=== PATIENT | female | born 1960 | race Caucasian/White ===

== ENCOUNTER 2018-02-01 17:37 | Emergency (ER) | payer OTHER ==
[~2018-02-01] VITALS: Ht 162.6 cm; Wt 63.1 kg
[~2018-02-01 17:37] MED LIST: LOPRESSOR25 MG PO; PLAVIX75 MG PO; PRILOSEC40 MG PO; PRINIVIL20 MG PO; PROZAC20 MG PO; ROBAXIN500 MG PO; ULTRAM50 MG PO; ZOCOR40 MG PO; ZOCOR80 M1 PO
[2018-02-01 18:03] LABS: BASOPHIL COUNT 0.1 K/uL (0-0.1); EOSINOPHIL (%) 3.2 % (0-5); EOSINOPHIL COUNT 0.2 K/uL (0-0.3); HEMATOCRIT 42.3 % (36.0-46.0); HEMOGLOBIN 14.7 G/DL (11.9-15.5); IMMATURE GRANULOCYTE (%) 0.3 % (0.0-0.7); LYMPHOCYTE (%) 29.9 % (15-42); LYMPHOCYTE COUNT 1.8 K/uL (1.0-2.8); MCH 33.9 PG (29.0-34.0); MCHC 34.8 G/DL (30.0-36.0); MCV 97.7 FL (83-99); MONOCYTE (%) 9.6 % (3-12); MONOCYTE COUNT 0.6 K/uL (0-0.8); NEUTROPHIL COUNT 3.3 K/uL (1.8-6.4); PLATELET COUNT 245 K/uL (156-360); RBC DIS.WIDTH-CV 12.3 % (11.8-14.6); RBC DIS.WIDTH-SD 44.2 % (39-53); RED BLOOD COUNT 4.33 M/uL (3.80-5.20)
[2018-02-01 18:07] LABS: INTER. NORMALIZED RATIO 0.9
[2018-02-01 18:09] LABS: PTT 29.5 SEC (25-37)
[2018-02-01 18:10] LABS: AMYLASE 34 IU/L (1-118); CHLORIDE 108 mEq/L (99-109); POTASSIUM 4.6 mEq/L (3.7-5.4); SODIUM 140 mEq/L (136-147)
[2018-02-01 18:12] LABS: GLUCOSE 109 mg/dL (70-99)
[2018-02-01 18:15] LABS: SERUM ETHYL ALCOHOL < 10 mg/dL
[2018-02-01 18:16] LABS: CREATININE 0.8 mg/dL (0.6-1.3); GFR ESTIMATE (CALCULATED) > 59 mL/min/; UREA NITROGEN (BUN) 14 mg/dL (9-23)
[2018-02-01 18:19] LABS: LIPASE 25 U/L (1.0-51.0)
[2018-02-01 18:21] LABS: TROP-I INTERPRETATION NEGATIVE; TROPONIN-I < 0.01 ng/mL (0.0-0.30)
[2018-02-01 20:03] LABS: APPEARANCE SL.HAZY ((CLEAR)); BILIRUBIN NEGATIVE; BLOOD MODERATE; COLOR YELLOW ((YELLOW)); GLUCOSE (STRIP) NEGATIVE; KETONES NEGATIVE; LEUKOCYTES TRACE; NITRITE NEGATIVE; PROTEIN (STRIP) NEGATIVE; SPECIFIC GRAVITY 1.004 (1.000-1.030); UROBILINOGEN 0.2 MG/DL (0.2-1.0)
[2018-02-01 20:04] VITALS: BP 154/67
[2018-02-01 20:11] LABS: AMPHETAMINE NEGATIVE (500 ng/mL); BARBITURATES NEGATIVE (200 ng/mL); BENZODIAZEPINES NEGATIVE (150 ng/mL); BUPRENORPHINE NEGATIVE (10 ng/mL); COCAINE NEGATIVE (150 ng/mL); METHADONE NEGATIVE (200 ng/mL); METHAMPHETAMINE NEGATIVE (500 ng/mL); OPIATES (MORPHINE) NEGATIVE (100 ng/mL); OXYCODONE NEGATIVE (100 ng/mL); PHENCYCLIDINE NEGATIVE (25 ng/mL); PROPOXYPHENE NEGATIVE (300 ng/mL); THC CANNABINOIDS NEGATIVE (50 ng/mL); TRICYCLIC ANTIDEPRESSANTS NEGATIVE (300 ng/mL)
[2018-02-01 20:25] LABS: WHITE BLOOD CELLS 0-5 /HPF (0-5)
[2018-02-01 20:26] LABS: BACTERIA 1+ /HPF; EPITHELIAL CELLS 1+ /HPF; MUCUS RARE /LPF; UCUL ADDED? NO
== END 2018-02-01 20:07 | disposition short-term general hospital (02) ==
LOC: EME → EDBD 17:37 → EME 17:37
PROVIDERS: Radiology Radiation Oncology
DX: I63.512 Cerebral infarction due to unspecified occlusion or stenosis of left middle cerebral artery (principal); G81.91 Hemiplegia, unspecified affecting right dominant side; I69.321 Dysphasia following cerebral infarction; I10 Essential (primary) hypertension; E78.5 Hyperlipidemia, unspecified; F17.200 Nicotine dependence, unspecified, uncomplicated; Z79.02 Long term (current) use of antithrombotics/antiplatelets; K21.9 Gastro-esophageal reflux disease without esophagitis; F41.9 Anxiety disorder, unspecified; F10.10 Alcohol abuse, uncomplicated; J44.9 Chronic obstructive pulmonary disease, unspecified; Z88.6 Allergy status to analgesic agent
CPT/HCPCS: 70450; 80048; 81003; 82150; 83690; 84484; 85025; 85610; 85730; 86850; 86900; 86901; 99281; 99285; G0480; J2997